=== PATIENT | male | born 1975 | race African-American/Black ===

== ENCOUNTER 2017-01-18 09:07 | Inpatient (IN) ==
[2017-01-18] MEDS ORDERED: SODIUM CHLORIDE 0.9% 500 ML IV STA (10:07)
[2017-01-18] MEDS ORDERED: ONDANSETRON 4 MG/2 ML VIAL IV STA ×3 (10:07→13:24)
[2017-01-18] MEDS ORDERED: METOCLOPRAMIDE 10 MG/2 ML VIAL IV STA (10:07)
--- NOTE | 2017-01-18 10:12 | Emergency Department Note ---
Arrival - Arrival Chief Complaint: Abdominal / Flank Pain Stated Complaint: major abdominal pain ED Nursing Triage Note: PT C/O RIGHT UPPER QUAD ABD PAIN X3 DAYS WITH NAUSEA. PT HAD GALLBLADDER REMOVED ON 12/[address] WEST. Mode of Arrival: Ambulatory Limitations: No Limitations Source: Patient Time Seen by Provider: 01/18/17 10:07 - History of Present Illness HPI Narrative: This 41-year-old black male presents with 3 days of persistent right upper quadrant pain with night sweats, nausea, and history of laparoscopic cholecystectomy 1 month ago. He denies leah vomiting, heartburn, belching, water brash. The patient states with onset of the pain he has not had any bowel movements. He does not have a prior history of any other gastrointestinal disorder other than his gallbladder. Currently he is in no acute distress. Onset (ago): day(s) (Patient presents 3 days post onset of symptoms) Allergies/Adverse Reactions: Allergies Allergy/AdvReac Type Severity Reaction Status Date / Time No Known Allergies Allergy Verified 01/18/17 09:28 Home Medications: Home Medications Medication Instructions Recorded Confirmed Type Amitriptyline [Elavil] 10 mg PO BEDTIME 09/08/16 12/15/16 History Fenofibrate [Tricor] 145 mg PO QAM 09/08/16 12/15/16 History Gabapentin 600 mg PO TID 09/08/16 12/15/16 History Indomethacin Cap [Indocin Cap] 25 mg PO TID #30 capsule 09/08/16 12/15/16 Rx Indomethacin [Indomethacin SR Cap] 75 mg PO DAILY PRN 09/08/16 12/15/16 History Lisinopril 20 mg PO BEDTIME 09/08/16 12/15/16 History Lisinopril 40 mg PO QAM 09/08/16 12/15/16 History [place]-3 Fatty Acids [[place]-3 Chew 200 mg PO BID 09/08/16 12/15/16 History Tab] amLODIPine [Norvasc] 10 mg PO QAM 09/08/16 12/15/16 History metFORMIN [Glucophage] 500 mg PO QAM 09/08/16 12/15/16 History HYDROcodone/ACETAMIN 7.5-325 1 tablet PO QID PRN #20 12/15/16 Rx [[place] 7.5-325] Omeprazole 20 mg PO QAM 12/15/16 12/15/16 History Ondansetron Odt Tab [Zofran Odt] 4 mg PO Q4H PRN #10 tablet 12/15/16 Rx Review of System - Review of System 12 point system: reviewed and no additional remarkable complaints except as stated - Review of System Constitutional: Present: as per HPI Gastrointestinal: Present: as per HPI Medical,Surgical,& Family Hx - Medical History Cardio: History of: Hypertension Endocrine: History of: Dyslipidemia Rheumatology: History of;: Gout - Surgical History Abdominal Surgeries: Surgical HX of: Cholecystectomy (12/15/2016) - Social History Smoking Status: Never smoker Frequency of Alcohol Use: Occasionally Type of Drug Use: None Exam Physical Examination: GENERAL: Well developed, well nourished black male in no acute distress. HEENT: Normocephalic. No trauma. Moist mucous membranes. EOMI. PERRLA. ENT NML NECK: Supple. No adenopathy. CARDIAC: Regular. No murmurs. Heart rate 91 CHEST: Clear to auscultation. No respiratory distress. O2 sat 96% ABDOMEN: Soft. Tender right upper quadrant and periumbilical area. Active bowel sounds. EXTREMITIES: No trauma. Normal ROM. No pedal edema. SKIN: No diaphoresis. No rash. NEURO: Alert. No focal deficits. Vital Signs: Vital Signs Temperature 98.8 F 01/18/17 10:48 Pulse Rate 91 H 01/18/17 10:48 Respiratory Rate 18 01/18/17 10:48 Blood Pressure 175/100 01/18/17 10:48 O2 Sat by Pulse Oximetry 96 01/18/17 09:26 Course - Reevaluation(s) Reevaluation #1: Discussed with patient and advised necessity of hospitalization given his acute pancreatitis. - Consultations Consultation #1: Discussed with Dr. West who felt this was purely medical and deferred to the hospitalist service although he will evaluate the patient in the ER for possible postoperative contribution. Consultation #2: Discussed with hospitalist service will admit for further evaluation treatment. Results - Labs CBC & BMP: 01/18/17 10:29 01/18/17 10:29 Labs: I reviewed the laboratory noted the elevated lipase. - Diagnostic Findings Procedure: CT Abdomen and Pelvis: image reviewed by me, report reviewed by me ( Left lower lobe 5 mm pulmonary nodule, fatty liver, diverticulosis, bilateral multinodular adrenal glands, acute pancreatitis with very pancreatic soft tissue fluid and inflammation with significant enlargement of the pancreatic head) Disposition Clinical Impression: Acute pancreatitis Case discussed with: patient Condition: Guarded Time of Disposition: 13:28
[2017-01-18] MEDS ORDERED: ONDANSETRON 4 MG/2 ML VIAL ONE ×3 (10:27→13:40)
[2017-01-18] MEDS ORDERED: METOCLOPRAMIDE 10 MG/2 ML VIAL ONE (10:27)
[2017-01-18 10:50] LABS: Basophils # 0.1 10*3/uL (0.0-0.2); Basophils % 0.6 % (0.0-0.8); Eosinophils # 0.1 10*3/uL (0.0-0.87); Eosinophils % 1.4 % (0.00-10.9); Hematocrit 43.9 VOL% (42.0-52.0); Immature Granulocytes % 0.5 %; Immature Granulocytes Absolute 0.04 #; Lymphocytes # 0.9 10*3/uL (1.4-4.0); Lymphocytes % 10.6 % (21.2-54.2); Mean Corpuscular HGB Conc 34.2 GM/DL (32-36); Mean Corpuscular Hemoglobin 29 PG (27-34); Mean Corpuscular Volume 84.6 FL (87-102); Mean Platelet Volume 12.7 FL (9.6-12.0); Monocytes # 0.7 10*3/uL (0.11-0.8); Monocytes % 7.8 % (1.7-12.7); Neutrophils # 6.7 10*3/uL (1.4-7.4); Neutrophils % 79.1 % (38.7-73.9); Platelet Count 193 T/CUMM (130-400); Red Blood Count 5.19 MC/CUMM (3.8-5.5); Red Cell Distribution Width 14.5 % (9.3-17.3); White Blood Count 8.4 T/CUMM (4-12)
[2017-01-18] MEDS ORDERED: HYDROmorphone 2 MG/1 ML VIAL ONE ×2 (10:59→13:41)
[2017-01-18] MEDS ORDERED: HYDROmorphone 2 MG/1 ML VIAL IV STA ×2 (11:08→13:24)
[2017-01-18 11:24] LABS: Bilirubin,Total 0.6 MG/DL (0.2-1.0); Calcium 10.2 MG/DL (8.5-10.1); Osmolality,Calculated 268.4 MOS/KG (273-304); Potassium 3.8 MMOL/L (3.5-5.1); Total Protein 8.9 G/DL (6.4-8.3)
--- NOTE | 2017-01-18 12:39 | CT Report ---
Referring physician: Yoni Lindquist EXAM: CT abdomen and pelvis with contrast DATE: 01/18/2017 COMPARISON: None REASON: Right upper quadrant pain, recent cholecystectomy, evaluate for postoperative abscess TECHNIQUE: Axial images of the abdomen and pelvis were obtained after administration of 100 cc of Omnipaque 350 IV contrast. Oral contrast was also administered. Coronal and sagittal reformatted images were also provided. Total DLP is 1116.70 mGy*cm. FINDINGS: Atelectasis/infiltration at the visualized lung bases. 5 mm noncalcified pulmonary nodule in the left lower lobe. Fatty infiltration of the liver which minimally enlarged with no masses or dilated ducts. Recent cholecystectomy with no significant fluid in the gallbladder bed location. The spleen is minimally enlarged with a splenic index of 916. Diffuse enlargement of the pancreas with the finding more prominent in the head of the pancreas. Minimal peripancreatic fluid and soft tissue stranding which extends into the mesentery. Multi nodularity of the adrenal glands with finding more prominent on the left. No renal pathology identified. The abdominal aorta is normal in size with no adjacent adenopathy. No significant dilatation of the small bowel with small fat-containing umbilical hernia. Limited oral contrast in the colon with diverticulosis. No evidence of diverticulitis, appendicitis, or free air. The prostate is not definitely enlarged with decompressed urinary bladder. No acute osseous findings are identified. IMPRESSION: Atelectasis/infiltration at the lung bases with indeterminant 5 mm noncalcified pulmonary nodule in the left lower lobe. Short-term follow-up CT chest may be helpful for further evaluation of this finding. Fatty infiltration of the liver with minimal hepatomegaly and splenomegaly. Recent cholecystectomy with no significant fluid collection in the gallbladder bed. Findings felt consistent with acute pancreatitis with associated peripancreatic fluid and soft tissue edema. Correlation with laboratory tests recommended. The findings are more pronounced in the head of the pancreas which is more relatively enlarged. Also there is multi nodularity of both adrenal glands. Short-term follow-up CT may be helpful for further evaluation of these findings. Diverticulosis of the colon with limited oral contrast in the bowel. The CT exam was performed using one or more of the following dose reduction techniques: Automated exposure control and adjustment of the mA and/or kV according to patient size. PROCEDURE INTERPRETED AT [facility] DEPARTMENT OF RADIOLOGY Final Report Signed by: Dr. Yun Black
[2017-01-18 13:09] LABS: Apearance,Urine CLEAR (Clear); Bilirubin,Urine Negative (Negative); Blood, Urine Negative (Negative); Glucose,Urine (UA) Negative (Negative); Ketones,Urine 5 mg/dL (Negative); Mucus,Urine Occasional /LPF (Occasional); Nitrite,Urine Negative (Negative); Protein,Urine 30 MG/DL; RBC,Urine 1 /HPF (0-4); Squamous Epithelial Cell,Urine Occasional /HPF (0-10); Urine Color Amber (Yellow); Urine Specific Gravity 1.032 (1.001-1.035); Urine Urobilinogen < 2.0 EU/DL (0.2-1.0); WBC,Urine 2 /HPF (0-6)
[2017-01-18 13:31] LABS: Barbiturates Screen,Urine Negative (Negative); Benzodiazepines Screen,Urine Negative (Negative); Cannabinoid Screen,Urine Negative (Negative); Opiate Screen,Urine Positive (Negative); Phencyclidine Screen,Urine Negative (Negative)
[2017-01-18] MEDS ORDERED: MORPHINE 2 MG/1 ML SYRINGE IV PRN (13:54)
[2017-01-18] MEDS ORDERED: LACTULOSE 20 GM/30 ML UDCUP PO PRN (13:54)
[2017-01-18] MEDS ORDERED: ZALEPLON 5 MG CAPSULE PO PRN (13:54)
[2017-01-18] MEDS ORDERED: PROMETHAZINE 25 MG/1 ML VIAL IM PRN (13:54)
--- NOTE | 2017-01-18 14:32 | General Surgery Consult Note ---
Assessment and Plan (1) Pancreatitis Status: Acute Assessment and plan: This patient has evidence of pancreatitis clinically and on exam. He did not have any gallstones in the past and was a biliary dyskinesia patient with no gallstones on final pathology either. I think this makes a retained gallstone less likely. Differential includes alcoholic pancreatitis or pancreatitis from other etiologies. There is no fluid collection in the gallbladder fossa or change in his bilirubin or biliary ductal dilation. I would not recommend any surgical intervention or anything in addition to treatment for pancreatitis initially. I will continue to follow. Current Visit: Yes History of Present Illness Chief complaint: Abdominal pain History of present illness: Mr. Hardy is a 41 year old male who underwent laparoscopic cholecystectomy for biliary dyskinesia on 12/15/2016 presents to the ER with symptoms of acute pancreatitis confirmed by CT scan and lipase elevation. He says that he drank a box of White Zinfandel on Wednesday and started having symptoms on Wednesday. He also had an episode that was diagnosed as pancreatitis or he was treated for his general many years ago but does not remember the exact date of this. His CT scan shows no biliary ductal dilation or stones. There are no stones on his final pathology report either. Home Medications Medication Instructions Recorded Confirmed Type Amitriptyline [Elavil] 10 mg PO BEDTIME 09/08/16 12/15/16 History Fenofibrate [Tricor] 145 mg PO QAM 09/08/16 12/15/16 History Gabapentin 600 mg PO TID 09/08/16 12/15/16 History Indomethacin Cap [Indocin Cap] 25 mg PO TID #30 capsule 09/08/16 12/15/16 Rx Indomethacin [Indomethacin SR Cap] 75 mg PO DAILY PRN 09/08/16 12/15/16 History Lisinopril 20 mg PO BEDTIME 09/08/16 12/15/16 History Lisinopril 40 mg PO QAM 09/08/16 12/15/16 History [place]-3 Fatty Acids [[place]-3 Chew 200 mg PO BID 09/08/16 12/15/16 History Tab] amLODIPine [Norvasc] 10 mg PO QAM 09/08/16 12/15/16 History metFORMIN [Glucophage] 500 mg PO QAM 09/08/16 12/15/16 History HYDROcodone/ACETAMIN 7.5-325 1 tablet PO QID PRN #20 12/15/16 Rx [[place] 7.5-325] Omeprazole 20 mg PO QAM 12/15/16 12/15/16 History Ondansetron Odt Tab [Zofran Odt] 4 mg PO Q4H PRN #10 tablet 12/15/16 Rx Allergies Allergy/AdvReac Type Severity Reaction Status Date / Time No Known Allergies Allergy Verified 01/18/17 09:28 Medical,Surgical,& Family Hx - Medical History Cardio: History of: Hypertension Endocrine: History of: Dyslipidemia Rheumatology: History of;: Gout - Surgical History Abdominal Surgeries: Surgical HX of: Cholecystectomy (12/15/2016) - Social History Smoking Status: Never smoker Frequency of Alcohol Use: Occasionally Type of Drug Use: None - Constitutional Constitutional: Present: as per HPI - EENT Nose, mouth and throat: Present: as per HPI - Cardiovascular Cardiovascular: Present: as per HPI - Respiratory Respiratory: Present: as per HPI - Gastrointestinal Gastrointestinal: Present: as per HPI - Genitourinary Genitourinary: Present: as per HPI - Musculoskeletal Musculoskeletal: Present: as per HPI - Neurological Neurological: Present: as per HPI - Endocrine Endocrine: Present: as per HPI Hematologic/Lymphatic: Present: as per HPI Exam - Constitutional Vitals: Period Temp Pulse Resp BP Sys/[place] Pulse Ox Last 24 Hr 98.8 F-98.8 F 91-91 18-18 175-175/100-100 96 General appearance: no acute distress, over weight - Head Head exam: Present: normal inspection, normocephalic - Eye Eye exam: Present: EOMI. Absent: scleral icterus Pupils: Present: FILEMON - ENT ENT exam: Present: normal exam Mouth exam: Present: normal external inspection, normal voice - Neck Neck exam: Present: normal inspection, trachea midline - Respiratory Respiratory exam: Present: clear to auscultation bilaterally. Absent: accessory muscle use, chest wall tenderness - Cardiovascular Cardiovascular exam: Present: RRR. Absent: systolic murmur, tachycardia - GI/Abdominal GI/Abdominal exam: Present: tenderness (There is some midepigastric tenderness present on exam. No peritoneal signs.), soft - Extremities Exam Extremities exam: Present: normal inspection, normal capillary refill - Back Exam Back exam: Present: normal inspection - Neurological Exam Neurological exam: Present: alert, oriented X3 Speech: Present: normal - Skin Skin exam: Present: normal color, warm Results - Labs CBC & BMP: 01/18/17 10:29 01/18/17 10:29 - Diagnostic Findings Procedure: CT Abdomen and Pelvis: image reviewed by me, report reviewed by me ( Acute pancreatitis)
--- NOTE | 2017-01-18 14:47 | Gastrointestinal Consult Note ---
Assessment and Plan (1) Pancreatitis Status: Acute Assessment and plan: 01/18-3 day history of upper quadrant abdominal pain with associated nausea. Findings on admission of elevated lipase with correlated CT findings as noted below. Prior episode of pancreatitis several years prior at [facility] requiring inpatient stay. History of alcohol use noted. Recent lap [place] without gallstones noted. LFTs unremarkable. Continue to monitor at present time. Recheck lipase level in the morning. Noted that clear liquid diet is ordered however recommendation to patient to have minimal intake if pain is exacerbated with this. Plan an addendum to followed by Dr. Buenrostro. Current Visit: Yes History of Present Illness Chief complaint: Pancreatitis History of present illness: Mr. Hardy is a 41 year old male who is being admitted to the hospital with findings of pancreatitis. Patient states that he was in his usual state of health until Wednesday afternoon. He states that prior to this, approximately 1 month ago, he had an episode of right upper quadrant abdominal pain and came to the emergency room. He was found at that time to have cholecystitis with biliary dyskinesia and underwent a laparoscopic cholecystectomy on 12/[address] Gordon. There were no evidence of stones on imaging and no mention of stones during surgery. There was mention on the surgical report of the liver was slightly inflamed with evidence of fatty infiltration but no cirrhotic changes noted at that time. Patient states he was doing well postoperatively until Wednesday when he had a fairly sudden onset of sharp and stabbing pain in his mid epigastric region radiating across to his left upper quadrant. He states the pain was severe in nature and was associated with nausea without vomiting. He states his pain got nothing similar to what he had prior to his cholecystectomy. The pain radiated into his back at times as well. Patient states the pain came and went during the day Wednesday and on Wednesday however this morning the pain became more severe and consistent therefore he presented to the emergency room for further evaluation. On admission, patient was found to have a mildly elevated lipase level at 549. He also had a CT of the abdomen with contrast which showed fatty liver as well as splenomegaly with peripancreatic fluid and soft tissue edema more prominent at the head of the pancreas which is relatively enlarged. He was noted on his prior ultrasound last month to have no pancreatic changes reported. He states he has had a prior episode of pancreatitis several years ago and was treated inpatient at [facility] in which he stayed for 8 days. He does not recall having a development of a pseudocyst at that time. Patient has not had another episode since then. He states he does have a history of alcohol use and back prior to his first episode of pancreatitis he did drink more frequently than now. He reports the last time he drank was Wednesday of this past week in which he and a friend drank a box of white Zinfandel wine. He states he more socially drinks now 2-3 times a week due to his job does not allow him to do this more frequently. He denies any recent viruses or medication changes. Denies any illicit drug use. Denies any fever or chills, night sweats or recent weight loss. Home Medications Medication Instructions Recorded Confirmed Type Amitriptyline [Elavil] 10 mg PO BEDTIME 09/08/16 12/15/16 History Fenofibrate [Tricor] 145 mg PO QAM 09/08/16 12/15/16 History Gabapentin 600 mg PO TID 09/08/16 12/15/16 History Indomethacin Cap [Indocin Cap] 25 mg PO TID #30 capsule 09/08/16 12/15/16 Rx Indomethacin [Indomethacin SR Cap] 75 mg PO DAILY PRN 09/08/16 12/15/16 History Lisinopril 20 mg PO BEDTIME 09/08/16 12/15/16 History Lisinopril 40 mg PO QAM 09/08/16 12/15/16 History [place]-3 Fatty Acids [[place]-3 Chew 200 mg PO BID 09/08/16 12/15/16 History Tab] amLODIPine [Norvasc] 10 mg PO QAM 09/08/16 12/15/16 History metFORMIN [Glucophage] 500 mg PO QAM 09/08/16 12/15/16 History HYDROcodone/ACETAMIN 7.5-325 1 tablet PO QID PRN #20 12/15/16 Rx [[place] 7.5-325] Omeprazole 20 mg PO QAM 12/15/16 12/15/16 History Ondansetron Odt Tab [Zofran Odt] 4 mg PO Q4H PRN #10 tablet 12/15/16 Rx Allergies Allergy/AdvReac Type Severity Reaction Status Date / Time No Known Allergies Allergy Verified 01/18/17 09:28 Medical,Surgical,& Family Hx - Medical History Cardio: History of: Hypertension Endocrine: History of: Dyslipidemia Rheumatology: History of;: Gout - Surgical History Abdominal Surgeries: Surgical HX of: Cholecystectomy (12/15/2016) - Social History Smoking Status: Never smoker Frequency of Alcohol Use: Occasionally Type of Drug Use: None 12 point system: reviewed and no additional remarkable complaints except as stated - Constitutional Constitutional: Present: as per HPI - EENT Eyes: Present: as per HPI Ears: Present: as per HPI Nose, mouth and throat: Present: as per HPI - Cardiovascular Cardiovascular: Present: as per HPI - Respiratory Respiratory: Present: as per HPI - Gastrointestinal Gastrointestinal: Present: as per HPI, abdominal pain, nausea - Genitourinary Genitourinary: Present: as per HPI - Musculoskeletal Musculoskeletal: Present: as per HPI - Neurological Neurological: Present: as per HPI - Psychiatric Psychiatric: Present: as per HPI - Endocrine Endocrine: Present: as per HPI - Hematologic/Lymphatic Hematologic/Lymphatic: Present: as per HPI Exam - Constitutional Vitals: Period Temp Pulse Resp BP Sys/[place] Pulse Ox Last 24 Hr 98.8 F-98.8 F 91-91 18-18 175-175/100-100 96 General appearance: normal weight, no acute distress - Head Head exam: Present: normal inspection, normocephalic - Eye Eye exam: Present: other (Lids and conjunctivae are unremarkable). Absent: scleral icterus - ENT ENT exam: Present: normal exam, normal oropharynx - Neck Neck exam: Present: normal inspection - Respiratory Respiratory exam: Present: clear to auscultation bilaterally. Absent: rales, rhonchi, wheezes - Cardiovascular Cardiovascular exam: Present: regular rate and rhythm. Absent: diastolic murmur , JVD, systolic murmur - GI/Abdominal GI/Abdominal exam: Present: normal bowel sounds, tenderness (Left upper quadrant , epigastric), soft. Absent: ascites, distended, mass, organomegaly - Extremities Exam Extremities exam: Present: normal inspection, full ROM - Back Exam Back exam: Present: normal inspection - Neurological Exam Neurological exam: Present: alert, oriented X3 - Psychiatric Psychiatric exam: Present: normal affect, normal mood - Skin Skin exam: Present: normal color, warm, dry Results - Labs CBC & BMP: 01/18/17 10:29 01/18/17 10:29 Lab Results: I have reviewed the past 24 hour labs - Diagnostic Findings Procedure: CT Abdomen and Pelvis: report reviewed by me
--- NOTE | 2017-01-18 15:19 | Hospitalist History & Physical ---
Assessment and Plan - Time spent with patient Time spent with patient: Greater than 30 minutes (1) Pancreatitis Status: Acute Assessment and plan: 41-year-old male with a history of hypertension, hyperlipidemia and alcoholism. Presents with epigastric bandlike pain. Lipase 549. CT of the abdomen and pelvis shows diffuse enlargement of the pancreatic head consistent with pancreatitis. Patient will be admitted as an inpatient for management of the pancreatitis with IV fluids, analgesics. Clear liquid diet. Will consult general surgery as well as gastroenterology. Repeat labs in the morning to include a CBC, CMP, lipid panel and magnesium with repeat lipase. Current Visit: Yes (2) Hypertension Status: Acute Assessment and plan: Continue to monitor BP. Continue home medications and adjust accordingly. Current Visit: Yes (3) Hyperlipidemia Status: Acute Assessment and plan: Lipid panel in a.m. Continue home medications. Current Visit: Yes (4) History of laparoscopic cholecystectomy Status: Acute Assessment and plan: Lap susannah on 12/15/[address] Gordon. He has been consulted to follow along. Current Visit: Yes (5) Hyperglycemia Status: Acute Assessment and plan: Serum glucose 172. Check hemoglobin A1c. Accu-Cheks ACHS and sliding scale per protocol as appropriate. Current Visit: Yes History of Present Illness Chief complaint: epigastric pain History of present illness: Mr. Hardy is a 41 year old -[place] male with a past medical history significant for hypertension hyperlipidemia who presents to the ED today with complaints of epigastric pain for the past 2 days. Patient reports that the pain initially began on Wednesday at around 1700. He does report that the pain is primarily located in the epigastric region in a bandlike fashion that radiates down to the umbilicus. He reports he has been nauseous without any vomiting. He reports progressively worsening since Wednesday. Patient rates the pain a 9 out of 10 prior to arrival. He does state that it has gotten better with pain medications in the ER. Patient reports a history of alcohol use and states that he last drank a "box of White Zinfandel" on Wednesday. He denies a smoking history. Of note, the patient did undergo a laparoscopic cholecystectomy per Dr. Gordon on 12/15/2016. At that time, he was noted that cholecystitis due to biliary dyskinesia and no stones were found during that visit nor per CT on this visit. Patient denies headache, blurry vision, chest pain, shortness of breath, numbness or tingling, and lower extremity edema. Lab work is significant for sodium 133, serum glucose 117, calculated osmolality 268.4, calcium 10.2, amylase 42, lipase 549. Urinalysis was negative for infection. UDS is positive for opiates. This case has been discussed with both Dr. Lindquist, ER physician, and Dr. Benavides, admitting physician, and the patient will be admitted to the hospital medicine service for further evaluation and treatment. CODE STATUS was discussed; patient is a full code and makes his own medical decisions. Home medications have been reviewed and reconciled. Home Medications Medication Instructions Recorded Confirmed Type Amitriptyline [Elavil] 10 mg PO BEDTIME 09/08/16 12/15/16 History Fenofibrate [Tricor] 145 mg PO QAM 09/08/16 12/15/16 History Gabapentin 600 mg PO TID 09/08/16 12/15/16 History Indomethacin Cap [Indocin Cap] 25 mg PO TID #30 capsule 09/08/16 12/15/16 Rx Indomethacin [Indomethacin SR Cap] 75 mg PO DAILY PRN 09/08/16 12/15/16 History Lisinopril 20 mg PO BEDTIME 09/08/16 12/15/16 History Lisinopril 40 mg PO QAM 09/08/16 12/15/16 History Webb-3 Fatty Acids [Webb-3 Chew 200 mg PO BID 09/08/16 12/15/16 History Tab] amLODIPine [Norvasc] 10 mg PO QAM 09/08/16 12/15/16 History metFORMIN [Glucophage] 500 mg PO QAM 09/08/16 12/15/16 History HYDROcodone/ACETAMIN 7.5-325 1 tablet PO QID PRN #20 12/15/16 Rx [Benson 7.5-325] Omeprazole 20 mg PO QAM 12/15/16 12/15/16 History Ondansetron Odt Tab [Zofran Odt] 4 mg PO Q4H PRN #10 tablet 12/15/16 Rx Allergies Allergy/AdvReac Type Severity Reaction Status Date / Time No Known Allergies Allergy Verified 01/18/17 09:28 Medical,Surgical,& Family Hx - Medical History Cardio: History of: Hypertension Endocrine: History of: Dyslipidemia Rheumatology: History of;: Gout - Surgical History Abdominal Surgeries: Surgical HX of: Appendectomy, Cholecystectomy (12/15/2016) - Family History Family History: Reports;: Family Diabetes, Family Hypertension - Social History Smoking Status: Never smoker Frequency of Alcohol Use: Occasionally Type of Drug Use: None Marital Status: Single Lives With:: Alone Functional capacity: independent ambulation 12 point system: reviewed and no additional remarkable complaints except as stated Exam - Constitutional Vitals: Period Temp Pulse Resp BP Sys/[place] Pulse Ox Last 24 Hr 98.8 F-98.8 F 91-91 18-18 175-175/100-100 96 Exam: General appearance: Obese, no acute distress - Head Head exam: Present: normocephalic, atraumatic - Eye Eye exam: Present: EOMI. Absent: conjunctival injection, nystagmus Pupils: Present: FILEMON, normal accommodation - ENT ENT exam: Present: normal exam, normal external ear exam - Neck Neck exam: Present: normal inspection. Absent: lymphadenopathy, tenderness, thyromegaly - Respiratory Respiratory exam: Present: clear to auscultation bilaterally. Absent: rales, rhonchi, wheezes - Cardiovascular Cardiovascular exam: Present: regular rate and rhythm. Absent: carotid bruit, gallop, rubs - GI/Abdominal GI/Abdominal exam: Present: Epigastric tenderness, normal bowel sounds. Absent : ascites, distended, mass - Extremities Exam Extremities exam: Present: normal inspection, normal capillary refill. Absent: edema - Back Exam Back exam: Absent: CVA tenderness (L), CVA tenderness (R) - Neurological Exam Neurological exam: Present: alert, oriented X3, CN II-XII intact, reflexes normal - Psychiatric Psychiatric exam: Present: normal affect, normal mood - Skin Skin exam: Present: normal color, warm, dry Results - Labs CBC & BMP: 01/18/17 10:29 01/18/17 10:29 Lab Results: I have reviewed the past 24 hour labs - EKG EKG results: interpreted by ERMD - Diagnostic Findings Procedure: CT Abdomen and Pelvis: image reviewed by me, report reviewed by me ( Diffuse enlargement of the pancreas with finding more prominent in the head of the pancreas)
[2017-01-18] MEDS: ONDANSETRON 4 MG/2 ML VIAL IV PRN ×2 (16:19→20:36)
[2017-01-18] MEDS: ENOXAPARIN 40 MG/0.4 ML SYRINGE SUBCUT SCH (16:20)
[2017-01-18] MEDS: SODIUM CHLORIDE 0.9% 1,000 ML IV SCH ×2 (16:20→22:58)
[2017-01-18] MEDS: HYDROmorphone 2 MG/1 ML VIAL IV PRN ×2 (18:33→22:56)
[2017-01-19] MEDS: ONDANSETRON 4 MG/2 ML VIAL IV PRN ×4 (03:03→21:21)
[2017-01-19] MEDS: HYDROmorphone 2 MG/1 ML VIAL IV PRN ×4 (03:11→21:21)
[2017-01-19 03:49] LABS: Basophils % 0.2 % (0.0-0.8); Eosinophils % 0.2 % (0.00-10.9); Hematocrit 43.9 VOL% (42.0-52.0); Hemoglobin 14.8 GM/DL (14.0-18.0); Immature Granulocytes % 0.4 %; Immature Granulocytes Absolute 0.04 #; Lymphocytes # 0.6 10*3/uL (1.4-4.0); Mean Corpuscular HGB Conc 33.7 GM/DL (32-36); Mean Corpuscular Hemoglobin 29 PG (27-34); Mean Corpuscular Volume 85.4 FL (87-102); Mean Platelet Volume 12.6 FL (9.6-12.0); Monocytes # 0.9 10*3/uL (0.11-0.8); Monocytes % 8.6 % (1.7-12.7); Neutrophils # 8.3 10*3/uL (1.4-7.4); Neutrophils % 84.6 % (38.7-73.9); Platelet Count 199 T/CUMM (130-400); Red Blood Count 5.14 MC/CUMM (3.8-5.5); Red Cell Distribution Width 14.7 % (9.3-17.3); White Blood Count 9.8 T/CUMM (4-12)
[2017-01-19 04:27] LABS: Albumin 3.6 G/DL (3.4-5.0); Bilirubin,Total 0.7 MG/DL (0.2-1.0); Calcium 9.2 MG/DL (8.5-10.1); Magnesium 1.7 MG/DL (1.8-2.4); Osmolality,Calculated 271.1 MOS/KG (273-304); Potassium 3.9 MMOL/L (3.5-5.1); Risk Ratio 11.77; Total Protein 7.3 G/DL (6.4-8.3)
[2017-01-19] MEDS: SODIUM CHLORIDE 0.9% 1,000 ML IV SCH ×3 (06:10→23:15)
[2017-01-19] MEDS ORDERED: MAGNESIUM SULF RIDER 2 GM in PREMIX 1 EACH IV ONE (07:29)
[2017-01-19] MEDS: PIPERACILLIN/TAZOBACTAM 3,375 MG in SODIUM CHLORIDE 0.9% 100 ML IV SCH ×3 (08:18→23:14)
[2017-01-19] MEDS: COLESEVELAM 625 MG TABLET PO SCH ×2 (08:18→17:55)
[2017-01-19] MEDS: PANTOPRAZOLE 40 MG TABLET PO SCH (08:18)
--- NOTE | 2017-01-19 09:18 | Event Note ---
No events overnight. Patient continues to have pain. Lipase is up to above 3000 today. On exam he has stable tenderness. I will continue to follow but no additional surgical intervention is planned at this time. Gastroenterology is following.
--- NOTE | 2017-01-19 09:40 | Hospitalist Progress Note ---
Assessment and Plan (1) Pancreatitis Status: Acute Assessment and plan: N.p.o. IV fluids IV pain medications GI and general surgery following Start WelChol Recheck labs in a.m. Current Visit: Yes (2) Hypertriglyceridemia Status: Acute Assessment and plan: Markedly elevated at 700. Start WelChol Current Visit: Yes (3) Hypertension Status: Chronic Current Visit: Yes Qualifiers: Hypertension type: essential hypertension Qualified Code(s): I10 - Essential (primary) hypertension (4) Hyperlipidemia Status: Acute Current Visit: Yes Qualifiers: Hyperlipidemia type: mixed hyperlipidemia Qualified Code(s): E78.2 - Mixed hyperlipidemia (5) History of laparoscopic cholecystectomy Status: Chronic Current Visit: Yes (6) Hyperglycemia Status: Acute Current Visit: Yes Hospitalist: Subjective Interval history: Patient seen and examined. No acute events overnight. Case discussed with nursing staff. Labs reviewed. Triglycerides noted to be 700. Lipase increased to 3000. Continues to have pain. Case discussed with GI Exam - Constitutional Vitals: Period Temp Pulse Resp BP Sys/[place] Pulse Ox Last 24 Hr 97.6 F-100.0 F 89-123 16-22 126-175/79-100 93-98 Exam: Constitutional System: Mild distress secondary to pain. No tremulousness. Head: Normocephalic, atraumatic. Ears, Nose and Throat System: No pain or tenderness. No epistaxis or discharge Eyes System: Pupils equal, round, and reactive. Extraocular muscles intact. Neck: Supple, without adenopathy, No jugular venous distention. No thyromegaly, neck mass, or prior surgery apparent. Respiratory System: Chest clear to auscultation. Cardiovascular System: Heart with regular rate and rhythm. No murmur. GI System: Abdomen distended and tender to palpation. Normo active bowel sounds present. Musculoskeletal System: limbs with no pedal edema. Full distal pulses. Normal capillary refill. Neurological System: No discernable sensory deficit. No aphasia Psychiatric System: Conversation is rational Results - Labs CBC & BMP: 01/19/17 02:57 01/19/17 02:57 Lab Results: I have reviewed the past 24 hour labs
--- NOTE | 2017-01-19 09:58 | Gastrointestinal Progress Note ---
Assessment and Plan (1) Pancreatitis Status: Acute Assessment and plan: 01/19-Elevated lipase today at 3222 with findings of elevated A1C and triglycerides. Will change back to NPO status, recheck labs in am. Plan and addendum to follow by Dr Buenrostro. 01/18-3 day history of upper quadrant abdominal pain with associated nausea. Findings on admission of elevated lipase with correlated CT findings as noted below. Prior episode of pancreatitis several years prior at [facility] requiring inpatient stay. History of alcohol use noted. Recent lap susannah without gallstones noted. LFTs unremarkable. Continue to monitor at present time. Recheck lipase level in the morning. Noted that clear liquid diet is ordered however recommendation to patient to have minimal intake if pain is exacerbated with this. Plan an addendum to followed by Dr. Buenrostro. Current Visit: Yes Gastroenterology - PN: Subj Interval history: CC: Pancreatitis Patient is seen, awake and alert sitting up in bed. States he has had continued abdominal pain throughout the night. He denies any episodes of nausea or vomiting. He is noted to have a low-grade temp this morning at 100.0. No changes in his WBCs which remain stable at 9000. Hemoglobin A1c is also noted at 7.1. Lipase has elevated today at 3222. He is also noted to have hypertriglyceridemia at 695. Cholesterol 365. Patient states he does take TriCor and is compliant with this as well as his fish oil. He states that he has been unable to tolerate very much of his clear liquid diet and it has exacerbated his pain when trying to eat. Discussed with patient at this time due to elevation in his lipase level and no improvement in his pain, we will discontinue his diet and place him back to n.p.o. status. We will continue to monitor his pain and lipase levels. Abdomen is soft, nontender. ROS: Denies shortness of breath or chest pain Exam (Progress Note) - Constitutional Vitals: Period Temp Pulse Resp BP Sys/[place] Pulse Ox Last 24 Hr 97.6 F-100.0 F 89-123 16-22 126-175/79-100 93-98 General appearance: normal weight, no acute distress - Head Head exam: Present: normal inspection, normocephalic - Eye Eye exam: Present: other (Lids and conjunctive are unremarkable). Absent: scleral icterus - ENT ENT exam: Present: normal exam, normal oropharynx - Neck Neck exam: Present: normal inspection - Respiratory Respiratory exam: Present: clear to auscultation bilaterally. Absent: rales, rhonchi, wheezes - Cardiovascular Cardiovascular exam: Present: regular rate and rhythm. Absent: diastolic murmur , JVD, systolic murmur - GI/Abdominal GI/Abdominal exam: Present: normal bowel sounds, soft. Absent: ascites, distended, mass, organomegaly, tenderness - Extremities Exam Extremities exam: Present: normal inspection, full ROM - Back Exam Back exam: Present: normal inspection - Neurological Exam Neurological exam: Present: alert, oriented X3 - Psychiatric Psychiatric exam: Present: normal affect, normal mood - Skin Skin exam: Present: normal color, warm, dry Results - Labs CBC & BMP: 01/19/17 02:57 01/19/17 02:57 Lab Results: I have reviewed the past 24 hour labs
[2017-01-19] MEDS ORDERED: DEXTROSE 50% 25 GM/50 ML VIAL IV PRN (10:01)
[2017-01-19] MEDS ORDERED: GLUCAGON 1 MG VIAL IM PRN (10:01)
[2017-01-19] MEDS: INSULIN LISPRO 100 UNIT/ML SUBCUT SCH ×3 (14:18→21:18)
[2017-01-19] MEDS: ENOXAPARIN 40 MG/0.4 ML SYRINGE SUBCUT SCH (15:32)
[2017-01-20] MEDS: HYDROmorphone 2 MG/1 ML VIAL IV PRN ×5 (01:01→20:16)
[2017-01-20] MEDS: ONDANSETRON 4 MG/2 ML VIAL IV PRN ×4 (01:01→20:21)
[2017-01-20] MEDS: INSULIN LISPRO 100 UNIT/ML SUBCUT SCH ×6 (01:01→20:15)
[2017-01-20] MEDS: SODIUM CHLORIDE 0.9% 1,000 ML IV SCH ×3 (04:13→20:15)
[2017-01-20 05:09] LABS: Basophils % 0.4 % (0.0-0.8); Eosinophils # 0.2 10*3/uL (0.0-0.87); Eosinophils % 3.4 % (0.00-10.9); Hematocrit 38.2 VOL% (42.0-52.0); Hemoglobin 12.9 GM/DL (14.0-18.0); Immature Granulocytes % 0.4 %; Immature Granulocytes Absolute 0.03 #; Lymphocytes % 15.2 % (21.2-54.2); Mean Corpuscular HGB Conc 33.8 GM/DL (32-36); Mean Corpuscular Hemoglobin 29 PG (27-34); Mean Platelet Volume 12.9 FL (9.6-12.0); Monocytes # 0.8 10*3/uL (0.11-0.8); Neutrophils # 4.7 10*3/uL (1.4-7.4); Neutrophils % 68.6 % (38.7-73.9); Platelet Count 167 T/CUMM (130-400); Red Blood Count 4.39 MC/CUMM (3.8-5.5); Red Cell Distribution Width 14.6 % (9.3-17.3); White Blood Count 6.9 T/CUMM (4-12)
[2017-01-20 05:46] LABS: Albumin 3.3 G/DL (3.4-5.0); Bilirubin,Total 1.3 MG/DL (0.2-1.0); Calcium 8.9 MG/DL (8.5-10.1); Potassium 4.2 MMOL/L (3.5-5.1)
--- NOTE | 2017-01-20 07:27 | Event Note ---
The patient appears to be improving clinically and his lipase is improving. His bilirubin did go up a little bit today. He feels thirsty and his pain is better. On exam he has a little bit of residual tenderness in the midepigastrium. His triglycerides were elevated yesterday. This does not appear to represent a retained stone and I feel like his chances of this are low since he only had biliary dyskinesia and no stone disease at the time of surgery. I would favor some other cause for his pancreatitis and resultant bilirubin elevation from swelling in the pancreas and bile duct area. I will sign off this time. Please call back with further questions per
[2017-01-20] MEDS: COLESEVELAM 625 MG TABLET PO SCH ×2 (08:27→16:14)
[2017-01-20] MEDS: PANTOPRAZOLE 40 MG TABLET PO SCH (08:28)
[2017-01-20] MEDS: PIPERACILLIN/TAZOBACTAM 3,375 MG in SODIUM CHLORIDE 0.9% 100 ML IV SCH ×3 (08:32→23:30)
--- NOTE | 2017-01-20 09:27 | Gastrointestinal Progress Note ---
Assessment and Plan (1) Pancreatitis Status: Acute Assessment and plan: 01/20-lipase levels down today at 785. Pain continues but not as severe. Noted mild increase in LFTs at this time. Recommend continued n.p.o. status 1 more day and if pain/lipase improved can restart clear liquids in the morning. Obtain abdominal ultrasound today. Recheck lipase as well as LFTs in the morning. Plan an addendum to follow by Dr. Buenrostro. 01/19-Elevated lipase today at 3222 with findings of elevated A1C and triglycerides. Will change back to NPO status, recheck labs in am. Plan and addendum to follow by Dr Buenrostro. 01/18-3 day history of upper quadrant abdominal pain with associated nausea. Findings on admission of elevated lipase with correlated CT findings as noted below. Prior episode of pancreatitis several years prior at [facility] requiring inpatient stay. History of alcohol use noted. Recent lap susannah without gallstones noted. LFTs unremarkable. Continue to monitor at present time. Recheck lipase level in the morning. Noted that clear liquid diet is ordered however recommendation to patient to have minimal intake if pain is exacerbated with this. Plan an addendum to followed by Dr. Buenrostro. Current Visit: Yes Gastroenterology - PN: Subj Interval history: CC: Pancreatitis Patient is seen awake alert sitting up in bed. States he is feeling a little better today however he still having continued abdominal pain. He does state the pain is not as severe but it is still present and requiring pain medication at times. He denies any nausea or vomiting at this time however states he just continues to feel a little "queasy". Patient has continued with pancreatic rest with just sips of water. He has not ran any further fever at this time. No leukocytosis. His lipase level is down to 785. He is noted today to have a bump in his LFTs with a bilirubin 1.3, AST [address] Gordon has seen patient this morning and is aware of elevation in LFTs. Does not feel at this time this is stone related. Abdomen is soft, tender to palpation. Discussed with patient regarding continue pancreatic rest today due to ongoing pain. Patient is agreeable to continue n.p.o. status with just sips and chips at this time until pain is improved and lipase levels continue to normalize. ROS: Denies shortness breath or chest pain Exam (Progress Note) - Constitutional Vitals: Period Temp Pulse Resp BP Sys/[place] Pulse Ox Last 24 Hr 97.8 F-99.1 F 94-107 18-21 125-142/67-85 91-95 General appearance: normal weight, no acute distress - Head Head exam: Present: normal inspection, normocephalic - Eye Eye exam: Present: other (Lids and conjunctivae are unremarkable). Absent: scleral icterus - ENT ENT exam: Present: normal exam, normal oropharynx - Neck Neck exam: Present: normal inspection - Respiratory Respiratory exam: Present: clear to auscultation bilaterally. Absent: rales, rhonchi, wheezes - Cardiovascular Cardiovascular exam: Present: regular rate and rhythm. Absent: diastolic murmur , JVD, systolic murmur - GI/Abdominal GI/Abdominal exam: Present: normal bowel sounds, tenderness, soft. Absent: ascites, distended, mass, organomegaly - Extremities Exam Extremities exam: Present: normal inspection, full ROM - Back Exam Back exam: Present: normal inspection - Neurological Exam Neurological exam: Present: alert, oriented X3 - Psychiatric Psychiatric exam: Present: normal affect, normal mood - Skin Skin exam: Present: normal color, warm, dry Results - Labs CBC & BMP: 01/20/17 03:55 01/20/17 03:55 Lab Results: I have reviewed the past 24 hour labs
--- NOTE | 2017-01-20 11:59 | Ultrasound Report ---
Exam: US abdomen Date: 01/20/2017 9:39 AM Comparison: 12/15/2016 Indication: Pancreatitis, elevated liver enzymes Technique:[Multiple transabdominal real-time scans were obtained of the abdomen. Color flow scans were obtained. Ultrasound images were captured and stored.] Findings: Prior cholecystectomy with CBD measuring 4 mm. Fatty infiltration of the liver with elongation of the right lobe. The spleen is minimally enlarged. Right kidney measures 127 mm length. Left kidney measures 1 29 mm length no mass or hydronephrosis. Diffuse enlargement of the pancreas with peripancreatic fluid and indistinct margins. The aorta including the aortic bifurcation is obscured by bowel gas. Color flow documented in the IVC and portal vein. Impression: Prior cholecystectomy with fatty infiltration of the minimally enlarged liver. CBD remains normal in size. Minimal splenomegaly. Evidence of acute pancreatitis. The Ultrasound images were captured and stored. PROCEDURE INTERPRETED AT [facility] Final Report Signed by: Dr. Yun Black
--- NOTE | 2017-01-20 12:58 | Hospitalist Progress Note ---
Assessment and Plan (1) Pancreatitis Status: Acute Assessment and plan: 01/20 -keep n.p.o. Continue IV fluids and pain medications. GI following. Lipase levels down to 785 from greater than 3000 yesterday. Recheck labs in a.m. 41-year-old male with a history of hypertension, hyperlipidemia and alcoholism. Presents with epigastric bandlike pain. Lipase 549. CT of the abdomen and pelvis shows diffuse enlargement of the pancreatic head consistent with pancreatitis. Patient will be admitted as an inpatient for management of the pancreatitis with IV fluids, analgesics. Clear liquid diet. Will consult general surgery as well as gastroenterology. Repeat labs in the morning to include a CBC, CMP, lipid panel and magnesium with repeat lipase. Current Visit: Yes (2) Hypertension Status: Chronic Assessment and plan: Continue to monitor BP. Continue home medications and adjust accordingly. Current Visit: Yes Qualifiers: Hypertension type: essential hypertension Qualified Code(s): I10 - Essential (primary) hypertension (3) Hyperlipidemia Status: Acute Current Visit: Yes Qualifiers: Hyperlipidemia type: mixed hyperlipidemia Qualified Code(s): E78.2 - Mixed hyperlipidemia (4) History of laparoscopic cholecystectomy Status: Chronic Assessment and plan: 01/20 -pancreatitis not thought to be secondary to previous surgery. General surgery has signed off at this time. Bert davalos on 12/15/[address] Gordon. He has been consulted to follow along. Current Visit: Yes (5) Hyperglycemia Status: Acute Assessment and plan: 01/20 -hemoglobin A1c noted to be 8.2. Continue glycemic control. WelChol has been added for the hypertriglyceridemia and should help with diabetic control as well. Serum glucose 172. Check hemoglobin A1c. Accu-Cheks ACHS and sliding scale per protocol as appropriate. Current Visit: Yes (6) Hypertriglyceridemia Status: Acute Assessment and plan: Patient has been started on WelChol. Triglycerides noted to be greater than 600 on yesterday. Patient has been made n.p.o. and will call has been held today. Current Visit: Yes (7) Elevated liver enzymes Status: Acute Assessment and plan: Abdominal ultrasound today shows fatty infiltration of a minimally enlarged liver. This elevation could be secondary to WelChol. WelChol has been held today. Current Visit: Yes Hospitalist: Subjective Interval history: Patient seen and examined today room 339. He reports that he is feeling better today though he does still complain of some pain. His lipase is down to 785 today. He does have a bump in his LFTs today. Abdominal ultrasound shows fatty infiltration of the minimally enlarged liver. This elevation could also be secondary to start of WelChol. Patient's diet has been downgraded to n.p.o. and he did not receive his WelChol dose this morning because of this. Exam - Constitutional Vitals: Period Temp Pulse Resp BP Sys/[place] Pulse Ox Last 24 Hr 97.8 F-99.1 F 90-107 18-21 125-142/67-85 91-95 Exam: General: No acute distress Heart: RRR; no gallops, murmurs, rubs, clicks Lungs: CTA bilaterally; no wheezes, rales, rhonchi Abdomen: Distended and tender to palpation, NBS, soft, no masses Extremities: no cyanosis, edema, clubbing Neuro: AAOx3 Results - Labs CBC & BMP: 01/20/17 03:55 01/20/17 03:55 Lab Results: I have reviewed the past 24 hour labs - Diagnostic Findings Procedure: Ultrasound: image reviewed by me, report reviewed by me Specialty Discharge - Follow Up or Referrals Follow up with: Nabeel Gordon MD [Physician] - (call as needed)
[2017-01-20] MEDS: ENOXAPARIN 40 MG/0.4 ML SYRINGE SUBCUT SCH (15:21)
[2017-01-21] MEDS: INSULIN LISPRO 100 UNIT/ML SUBCUT SCH ×6 (00:56→20:51)
[2017-01-21] MEDS: ONDANSETRON 4 MG/2 ML VIAL IV PRN ×5 (00:57→22:29)
[2017-01-21] MEDS: HYDROmorphone 2 MG/1 ML VIAL IV PRN ×5 (00:57→22:26)
[2017-01-21] MEDS: SODIUM CHLORIDE 0.9% 1,000 ML IV SCH ×4 (01:05→20:50)
[2017-01-21 06:02] LABS: Albumin 3.4 G/DL (3.4-5.0); Bilirubin,Direct 0.37 MG/DL (0.0-0.20); Bilirubin,Indirect 0.8 MG/DL (0.0-1.0); Bilirubin,Total 1.2 MG/DL (0.2-1.0); Total Protein 7.2 G/DL (6.4-8.3)
[2017-01-21] MEDS: COLESEVELAM 625 MG TABLET PO SCH ×2 (07:48→17:32)
[2017-01-21] MEDS: PANTOPRAZOLE 40 MG TABLET PO SCH (08:32)
[2017-01-21] MEDS: PIPERACILLIN/TAZOBACTAM 3,375 MG in SODIUM CHLORIDE 0.9% 100 ML IV SCH ×2 (08:35→17:35)
--- NOTE | 2017-01-21 09:04 | Gastrointestinal Progress Note ---
Assessment and Plan (1) Pancreatitis Status: Acute Assessment and plan: 01/21-lipase levels done at 648. Afebrile. Abdominal pain improved. Noted that LFTs are elevated as below. Begin clear liquid diet and advance as tolerated. Recheck lipase, LFTs tomorrow. Plan an addendum to followed by Dr. Buenrostro. 01/20-lipase levels down today at 785. Pain continues but not as severe. Noted mild increase in LFTs at this time. Recommend continued n.p.o. status 1 more day and if pain/lipase improved can restart clear liquids in the morning. Obtain abdominal ultrasound today. Recheck lipase as well as LFTs in the morning. Plan an addendum to follow by Dr. Buenrostro. 01/19-Elevated lipase today at 3222 with findings of elevated A1C and triglycerides. Will change back to NPO status, recheck labs in am. Plan and addendum to follow by Dr Buenrostro. 01/18-3 day history of upper quadrant abdominal pain with associated nausea. Findings on admission of elevated lipase with correlated CT findings as noted below. Prior episode of pancreatitis several years prior at [facility] requiring inpatient stay. History of alcohol use noted. Recent lap susannah without gallstones noted. LFTs unremarkable. Continue to monitor at present time. Recheck lipase level in the morning. Noted that clear liquid diet is ordered however recommendation to patient to have minimal intake if pain is exacerbated with this. Plan an addendum to followed by Dr. Buenrostro. Current Visit: Yes Gastroenterology - PN: Subj Interval history: CC: Pancreatitis Patient is seen, awake and alert lying in bed. States he had an uneventful night. States that his pain is much more improved today and is minimal at this time. He has remained n.p.o. and has tolerated sips and chips well. His lipase levels are down slightly today at 648 however he is noted to have an elevation in his LFTs. Bilirubin is 1.2, AST 129 ALT 124. Patient has had no nausea or vomiting. His ultrasound results on yesterday were noted. Abdomen is soft, nontender to palpation. He is afebrile. ROS: Denies shortness of breath or chest pain Exam (Progress Note) - Constitutional Vitals: Period Temp Pulse Resp BP Sys/[place] Pulse Ox Last 24 Hr 97.2 F-98.9 F 87-98 16-20 134-145/66-88 93-99 General appearance: normal weight, no acute distress - Head Head exam: Present: normal inspection, normocephalic - Eye Eye exam: Present: other (Lids and conjunctivae are unremarkable). Absent: scleral icterus - ENT ENT exam: Present: normal exam, normal oropharynx - Neck Neck exam: Present: normal inspection - Respiratory Respiratory exam: Present: clear to auscultation bilaterally. Absent: rales, rhonchi, wheezes - Cardiovascular Cardiovascular exam: Present: regular rate and rhythm. Absent: diastolic murmur , JVD, systolic murmur - GI/Abdominal GI/Abdominal exam: Present: normal bowel sounds, soft. Absent: ascites, distended, mass, organomegaly, tenderness - Extremities Exam Extremities exam: Present: normal inspection, full ROM - Back Exam Back exam: Present: normal inspection - Neurological Exam Neurological exam: Present: alert, oriented X3 - Psychiatric Psychiatric exam: Present: normal affect, normal mood - Skin Skin exam: Present: normal color, warm, dry Results - Labs CBC & BMP: 01/20/17 03:55 01/20/17 03:55 Lab Results: I have reviewed the past 24 hour labs - Diagnostic Findings Procedure: Ultrasound: report reviewed by me Specialty Discharge - Follow Up or Referrals Follow up with: Nabeel Gordon MD [Physician] - (call as needed)
--- NOTE | 2017-01-21 14:33 | Hospitalist Progress Note ---
Assessment and Plan (1) Pancreatitis Status: Acute Assessment and plan: Clear liquids start today IV fluids IV pain medications GI and following Continue WelChol Recheck labs in a.m. Current Visit: Yes (2) Hypertriglyceridemia Status: Acute Assessment and plan: Markedly elevated at 700. Start WelChol Current Visit: Yes (3) Hypertension Status: Chronic Current Visit: Yes Qualifiers: Hypertension type: essential hypertension Qualified Code(s): I10 - Essential (primary) hypertension (4) Hyperlipidemia Status: Acute Current Visit: Yes Qualifiers: Hyperlipidemia type: mixed hyperlipidemia Qualified Code(s): E78.2 - Mixed hyperlipidemia (5) History of laparoscopic cholecystectomy Status: Chronic Current Visit: Yes (6) Hyperglycemia Status: Acute Current Visit: Yes Hospitalist: Subjective Interval history: Patient looks and feels better today. Lipase coming down. Will start clear liquids today. GI following. Monitor increasing LFTs. Case discussed with GI ASSOCIATE TECHNICIAN. Exam - Constitutional Vitals: Period Temp Pulse Resp BP Sys/[place] Pulse Ox Last 24 Hr 97.2 F-98.9 F 87-98 16-20 135-145/66-88 93-99 Exam: Constitutional System: Mild distress secondary to pain. No tremulousness. Head: Normocephalic, atraumatic. Ears, Nose and Throat System: No pain or tenderness. No epistaxis or discharge Eyes System: Pupils equal, round, and reactive. Extraocular muscles intact. Neck: Supple, without adenopathy, No jugular venous distention. No thyromegaly, neck mass, or prior surgery apparent. Respiratory System: Chest clear to auscultation. Cardiovascular System: Heart with regular rate and rhythm. No murmur. GI System: Abdomen distended and tender to palpation. Normo active bowel sounds present. Musculoskeletal System: limbs with no pedal edema. Full distal pulses. Normal capillary refill. Neurological System: No discernable sensory deficit. No aphasia Psychiatric System: Conversation is rational Results - Labs CBC & BMP: 01/20/17 03:55 01/20/17 03:55 Lab Results: I have reviewed the past 24 hour labs Specialty Discharge - Follow Up or Referrals Follow up with: Nabeel Gordon MD [Physician] - (call as needed)
[2017-01-21] MEDS: ENOXAPARIN 40 MG/0.4 ML SYRINGE SUBCUT SCH (14:49)
[2017-01-22] MEDS: SODIUM CHLORIDE 0.9% 1,000 ML IV SCH ×6 (00:01→23:08)
[2017-01-22] MEDS: INSULIN LISPRO 100 UNIT/ML SUBCUT SCH ×6 (00:15→20:36)
[2017-01-22] MEDS: PIPERACILLIN/TAZOBACTAM 3,375 MG in SODIUM CHLORIDE 0.9% 100 ML IV SCH ×4 (00:37→23:08)
[2017-01-22 06:28] LABS: Albumin 3.3 G/DL (3.4-5.0); Bilirubin,Direct 0.25 MG/DL (0.0-0.20); Bilirubin,Indirect 0.5 MG/DL (0.0-1.0); Bilirubin,Total 0.7 MG/DL (0.2-1.0); Total Protein 7.1 G/DL (6.4-8.3)
[2017-01-22] MEDS: ONDANSETRON 4 MG/2 ML VIAL IV PRN ×4 (07:54→22:28)
[2017-01-22] MEDS: PANTOPRAZOLE 40 MG TABLET PO SCH ×2 (07:55→09:29)
[2017-01-22] MEDS: HYDROmorphone 2 MG/1 ML VIAL IV PRN ×4 (07:56→22:27)
[2017-01-22] MEDS: COLESEVELAM 625 MG TABLET PO SCH ×2 (09:26→17:00)
--- NOTE | 2017-01-22 09:47 | Gastrointestinal Progress Note ---
Assessment and Plan (1) Pancreatitis Status: Acute Assessment and plan: 01/22-lipase levels at 682. Afebrile. Abdominal pain continues to improve the nausea vomiting. LFTs are trending downward. Advance to full liquids for breakfast and then advance as tolerated after this. Plan an addendum to followed by Dr. Buenrostro. 01/21-lipase levels done at 648. Afebrile. Abdominal pain improved. Noted that LFTs are elevated as below. Begin clear liquid diet and advance as tolerated. Recheck lipase, LFTs tomorrow. Plan an addendum to followed by Dr. Buenrostro. 01/20-lipase levels down today at 785. Pain continues but not as severe. Noted mild increase in LFTs at this time. Recommend continued n.p.o. status 1 more day and if pain/lipase improved can restart clear liquids in the morning. Obtain abdominal ultrasound today. Recheck lipase as well as LFTs in the morning. Plan an addendum to follow by Dr. Buenrostro. 01/19-Elevated lipase today at 3222 with findings of elevated A1C and triglycerides. Will change back to NPO status, recheck labs in am. Plan and addendum to follow by Dr Buenrostro. 01/18-3 day history of upper quadrant abdominal pain with associated nausea. Findings on admission of elevated lipase with correlated CT findings as noted below. Prior episode of pancreatitis several years prior at [facility] requiring inpatient stay. History of alcohol use noted. Recent lap susannah without gallstones noted. LFTs unremarkable. Continue to monitor at present time. Recheck lipase level in the morning. Noted that clear liquid diet is ordered however recommendation to patient to have minimal intake if pain is exacerbated with this. Plan an addendum to followed by Dr. Buenrostro. Current Visit: Yes Gastroenterology - PN: Subj Interval history: CC: Pancreatitis Pt is awake and alert, sitting up in bed. He states he is feeling a little bit better today. Patient states his abdominal pain continues to improve and he has had no further nausea or vomiting. He is tolerating his clear liquid diet well and states he has an aggressive appetite and is asking to advance this. Lipase levels remain at 682 however he is afebrile without any leukocytosis. LFTs are noted to be trending downward today. He is noted to have some continued episodes of elevated blood pressure which is being managed by his attending. He has not had a bowel movement since admission however he is passing flatus. Abdomen is soft, nontender. ROS: Denies shortness of breath chest pain Exam (Progress Note) - Constitutional Vitals: Period Temp Pulse Resp BP Sys/[place] Pulse Ox Last 24 Hr 97.5 F-98.3 F 80-91 18-20 133-163/71-101 91-99 General appearance: normal weight, no acute distress - Head Head exam: Present: normal inspection, normocephalic - Eye Eye exam: Present: other (Lids and conjunctivae are unremarkable). Absent: scleral icterus - ENT ENT exam: Present: normal exam, normal oropharynx - Neck Neck exam: Present: normal inspection - Respiratory Respiratory exam: Present: clear to auscultation bilaterally. Absent: rales, rhonchi, wheezes - Cardiovascular Cardiovascular exam: Present: regular rate and rhythm. Absent: diastolic murmur , JVD, systolic murmur - GI/Abdominal GI/Abdominal exam: Present: normal bowel sounds, soft. Absent: ascites, distended, mass, organomegaly, tenderness - Extremities Exam Extremities exam: Present: normal inspection, full ROM - Back Exam Back exam: Present: normal inspection - Neurological Exam Neurological exam: Present: alert, oriented X3 - Psychiatric Psychiatric exam: Present: normal affect, normal mood - Skin Skin exam: Present: normal color, warm, dry Results - Labs CBC & BMP: 01/20/17 03:55 01/20/17 03:55 Lab Results: I have reviewed the past 24 hour labs Specialty Discharge - Follow Up or Referrals Follow up with: Nabeel Gordon MD [Physician] - (call as needed)
[2017-01-22] MEDS: ENOXAPARIN 40 MG/0.4 ML SYRINGE SUBCUT SCH (17:25)
[2017-01-22] MEDS ORDERED: MAGNESIUM HYDROXIDE SUSP 30 ML UDCUP PO ONE (18:16)
--- NOTE | 2017-01-22 18:16 | Hospitalist Progress Note ---
Assessment and Plan (1) Pancreatitis Status: Acute Assessment and plan: Doing well with advance diet. Likely home in a.m. Continue WelChol Recheck labs in a.m. Current Visit: Yes Qualifiers: Chronicity: acute Pancreatitis type: alcohol induced Acute pancreatitis complication: no infection or necrosis Qualified Code(s): K85.20 - Alcohol induced acute pancreatitis without necrosis or infection (2) Hypertriglyceridemia Status: Acute Assessment and plan: Markedly elevated at 700. Continue WelChol Current Visit: Yes (3) Hypertension Status: Chronic Current Visit: Yes Qualifiers: Hypertension type: essential hypertension Qualified Code(s): I10 - Essential (primary) hypertension (4) Hyperlipidemia Status: Acute Current Visit: Yes Qualifiers: Hyperlipidemia type: mixed hyperlipidemia Qualified Code(s): E78.2 - Mixed hyperlipidemia (5) History of laparoscopic cholecystectomy Status: Chronic Current Visit: Yes (6) Hyperglycemia Status: Acute Current Visit: Yes Hospitalist: Subjective Interval history: Patient seen and examined. No acute events overnight. Case discussed with nursing staff. Labs reviewed. He reports significant improvement. He is tolerating a regular diet today. Plan for discharge home tomorrow. Repeat CMP and lipase in a.m. GI notes reviewed. No bowel movement since admission. Exam - Constitutional Vitals: Period Temp Pulse Resp BP Sys/[place] Pulse Ox Last 24 Hr 97.4 F-98.1 F 80-91 16-20 127-163/71-101 91-96 Exam: Constitutional System: Mild distress secondary to pain. No tremulousness. Head: Normocephalic, atraumatic. Ears, Nose and Throat System: No pain or tenderness. No epistaxis or discharge Eyes System: Pupils equal, round, and reactive. Extraocular muscles intact. Neck: Supple, without adenopathy, No jugular venous distention. No thyromegaly, neck mass, or prior surgery apparent. Respiratory System: Chest clear to auscultation. Cardiovascular System: Heart with regular rate and rhythm. No murmur. GI System: Abdomen distended and nontender to palpation. Normo active bowel sounds present. Musculoskeletal System: limbs with no pedal edema. Full distal pulses. Normal capillary refill. Neurological System: No discernable sensory deficit. No aphasia Psychiatric System: Conversation is rational Results - Labs CBC & BMP: 01/20/17 03:55 01/20/17 03:55 Lab Results: I have reviewed the past 24 hour labs Specialty Discharge - Follow Up or Referrals Follow up with: Nabeel Gordon MD [Physician] - (call as needed)
[2017-01-23] MEDS: INSULIN LISPRO 100 UNIT/ML SUBCUT SCH ×4 (00:34→13:22)
[2017-01-23 04:41] LABS: Albumin 3.2 G/DL (3.4-5.0); Bilirubin,Total 0.9 MG/DL (0.2-1.0); Calcium 9.2 MG/DL (8.5-10.1); Osmolality,Calculated 278.4 MOS/KG (273-304); Total Protein 6.9 G/DL (6.4-8.3)
[2017-01-23] MEDS: ONDANSETRON 4 MG/2 ML VIAL IV PRN ×2 (06:40→11:16)
[2017-01-23] MEDS: HYDROmorphone 2 MG/1 ML VIAL IV PRN ×2 (06:40→11:15)
[2017-01-23] MEDS: SODIUM CHLORIDE 0.9% 1,000 ML IV SCH (06:43)
[2017-01-23] MEDS: COLESEVELAM 625 MG TABLET PO SCH (08:17)
[2017-01-23] MEDS: PIPERACILLIN/TAZOBACTAM 3,375 MG in SODIUM CHLORIDE 0.9% 100 ML IV SCH (08:18)
[2017-01-23] MEDS: PANTOPRAZOLE 40 MG TABLET PO SCH (10:40)
[2017-01-23] MEDS ORDERED: MAGNESIUM HYDROXIDE SUSP 30 ML UDCUP PO ONE (11:00)
--- NOTE | 2017-01-23 11:22 | Discharge Summary ---
Hospital Course - Hospital Course Hospital Course: 41-year-old -[place] male admitted to the hospital with abdominal pain and pancreatitis. He was found to have elevated triglyceride levels of 700. He is one-month status post cholecystectomy. There was no evidence of retained stones. He also reports episodic alcohol intake. The likely cause of his pancreatitis is alcohol ingestion worsened by his elevated triglyceride levels. He improved with conservative management including aggressive IV fluid hydration, n.p.o. status, IV pain medications. He was started on WelChol for his hypertriglyceridemia. He is now tolerating regular diet and his pain has improved. He is being discharged home to follow-up with his primary care physician and Dr. Gordon as an outpatient. His liver function tests were initially elevated and have improved. His home medications were reviewed and reconciled. He was given a new prescription for pain medication and welchol at discharge. - Time spent with patient Time with patient DS: Greater than 30 minutes (Total discharge time for this patient, including [id number] time, clinical documentation, medication reconciliation, and discharge planning was 39 minutes.) Diagnosis - Discharge Diagnosis (1) Pancreatitis Status: Resolved (2) Hypertriglyceridemia Status: Chronic (3) Hypertension Status: Chronic (4) Hyperlipidemia Status: Chronic (5) History of laparoscopic cholecystectomy Status: Chronic (6) Hyperglycemia Status: Chronic Specialty Discharge - Follow Up or Referrals Follow up with: Nabeel Gordon MD [Physician] - (call as needed) Discharge Plan - Discharge Data Disposition: Disch To Home/Self Care Condition at Discharge: Stable Discharge Diet: advance to your usual diet Activity: resume usual activities as tolerated Hygiene: no restrictions Weight Bearing at Discharge: full weight bearing Driving: no restrictions Contact your physician if you experience:: fever over 101, pain uncontrolled by pain medications - Discharge Medications [place] Colesevelam [Welchol] 1,875 mg PO BID W/MEALS #180 tablet Continue Gary-3 Fatty Acids [Gary-3 Chew Tab] 200 mg PO BID Lisinopril 40 mg PO QAM Indomethacin [Indomethacin SR Cap] 75 mg PO DAILY PRN PRN Reason: Pain Fenofibrate [Tricor] 145 mg PO QAM amLODIPine [Norvasc] 10 mg PO QAM Omeprazole 20 mg PO QAM Indomethacin Cap [Indocin Cap] 25 mg PO TID HYDROcodone/ACETAMIN 7.5-325 [Narberth 7.5-325] 1 tablet PO QID PRN #20 tablet PRN Reason: Abdominal Pain Discontinued Lisinopril 20 mg PO BEDTIME - Follow Up or Referral Follow Up: Nabeel Gordon MD [Physician] - (call as needed) - Forms/Instructions Instructions: Pancreatitis (DC) Additional Discharge Instructions: Avoid all alcohol intake Exam - Constitutional Vitals: Period Temp Pulse Resp BP Sys/[place] Pulse Ox Last 24 Hr 97.4 F-99.1 F 81-89 16-20 149-160/76-91 92-97 Discharge Results Labs on day of discharge: Labs from last 24 hours 01/23/17 01/23/17 01/23/17 07:56 04:17 01:49 Sodium 140 Potassium 4.0 Chloride 104 Carbon Dioxide 26 Anion Gap 14.0 BUN 6 L Creatinine 1.00 GFR Calculation 136 BUN/Creatinine Ratio 6.00 Glucose 139 H POC Glucose 93 96 Calculated Osmolality 278.4 Calcium 9.2 Total Bilirubin 0.90 AST 46 H ALT 93 H Alkaline Phosphatase 84 Total Protein 6.9 Albumin 3.2 L Globulin 3.7 H Albumin/Globulin Ratio 0.8 L Lipase 519.0 H D 01/23/17 01/22/17 01/22/17 00:27 20:28 17:24 Sodium Potassium Chloride Carbon Dioxide Anion Gap BUN Creatinine GFR Calculation BUN/Creatinine Ratio Glucose POC Glucose 123 H 130 H 121 H Calculated Osmolality Calcium Total Bilirubin AST ALT Alkaline Phosphatase Total Protein Albumin Globulin Albumin/Globulin Ratio Lipase DS: Provider Date of admission: 01/18/17 13:54 Primary care physician: . No PCP Attending physician on admission: Lin Cade MD Consults: 01/18/17 13:54 Consult to Physician [CONS] Routine Comment: Pancreatitis s/p cholecystectomy Consulting Provider: Nabeel Gordon Consulting Provider Notified: Yes When should Consulting Provider be notified: Now Person Notified: ana called Date Notified: 01/18/17 Time Notified: 15:41 Consult to Physician [CONS] Routine Comment: pancreatitis Consulting Provider: Tawanda Buenrostro Consulting Provider Notified: Yes When should Consulting Provider be notified: Now Person Notified: jeronimo called Date Notified: 01/18/17 Time Notified: 16:22 Discharging clinician: Lin Cade MD Expected date of discharge: 01/23/17
[2017-01-23 11:54] VITALS: BP 160/93
== END 2017-01-23 14:30 | disposition home or self-care (01) | DRG 440 ==
LOC: N.ED 09:07 → N.EDINP 13:54 → N.3E 15:32
PROVIDERS: ADMIT Family Medicine; ATTEND Family Medicine